=== PATIENT | female | born 2000 | race African-American/Black ===

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

== ENCOUNTER 2022-03-17 17:25 | Outpatient (CLI) | payer OTHER ==
[2022-03-18 12:36] LABS: Chlam.trachomatis by PCR,Urine Not Detected (NotDetected)
== END 2022-03-17 17:26 | disposition home or self-care (01) ==
LOC: MADLAB 17:25
PROVIDERS: ATTEND Registered Nurse
DX: Z20.2 Contact with and (suspected) exposure to infections with a predominantly sexual mode of transmission (principal)
CPT/HCPCS: 87491; 87591

== ENCOUNTER 2024-10-19 13:18 | Emergency (ER) | payer OTHER, SELFPAY ==
[2024-10-19] MEDS ORDERED: Ibuprofen 600 MG TAB ONE (13:24)
== END 2024-10-19 13:36 | disposition home or self-care (01) ==
LOC: MADERS 13:18
DX: J06.9 Acute upper respiratory infection, unspecified (principal)
CPT/HCPCS: 99283